=== PATIENT | male | born 1990 | race Native Hawaiian/Other Pacific Islander ===

== ENCOUNTER 2018-10-22 11:50 | Emergency (ER) | payer OTHER ==
[~2018-10-22] VITALS: Ht 172.7 cm; Wt 74.8 kg
[2018-10-22 13:50] VITALS: BP 140/69; TEMP 99
== END 2018-10-22 13:50 | disposition home or self-care (01) ==
LOC: ED 11:50
DX: S90.31XA Contusion of right foot, initial encounter (principal); W16.612A Jumping or diving into natural body of water striking water surface causing other injury, initial encounter; Y92.828 Other wilderness area as the place of occurrence of the external cause
CPT/HCPCS: 99283

== ENCOUNTER 2019-03-18 14:00 | Observation (INO) | payer OTHER ==
[~2019-03-18] VITALS: Ht 172.7 cm; Wt 74.9 kg
[2019-03-18 14:10] VITALS: BP 140/83; TEMP 98.1
[2019-03-18 15:18] LABS: POTASSIUM 3.7 mmol/L (3.6-5.2)
[2019-03-18 15:37] LABS: PLATELET COUNT 429 K/uL (142-355)
[2019-03-18 17:08] VITALS: BP 124/85; TEMP 98.4; Ht 172.7 cm; Wt 74.9 kg
[2019-03-18 20:00] VITALS: BP 125/76; TEMP 98.4
[2019-03-19] VITALS: BP 122/74; TEMP 98.2
[2019-03-19 03:56] VITALS: BP 129/76; TEMP 98.4
[2019-03-19 05:59] LABS: PLATELET COUNT 378 K/uL (142-355)
[2019-03-19 06:16] LABS: POTASSIUM 4.1 mmol/L (3.6-5.2)
[2019-03-19 08:00] VITALS: BP 91/70; TEMP 98.4
[2019-03-19 12:00] VITALS: BP 129/84; TEMP 97.5
[2019-03-19 16:00] VITALS: BP 126/63; TEMP 98.4
[2019-03-19 20:01] VITALS: BP 132/72; TEMP 99.8
[2019-03-20] VITALS: BP 127/76; TEMP 98.4
[2019-03-20 04:00] VITALS: BP 110/82; TEMP 98.4
[2019-03-20 05:21] LABS: PLATELET COUNT 364 K/uL (142-355)
[2019-03-20 05:36] LABS: POTASSIUM 4.1 mmol/L (3.6-5.2)
[2019-03-20 08:00] VITALS: BP 118/73; TEMP 98.4
[2019-03-20 12:00] VITALS: BP 123/54; TEMP 98.1
[2019-03-20 16:00] VITALS: BP 135/70; TEMP 98.4
[2019-03-20] MEDS ORDERED: [UNRECOGNIZED DRUG - CODE] INJ (16:14)
== END 2019-03-20 17:00 | disposition home or self-care (01) ==
LOC: ED 14:00 → MED/SURG 15:50
PROVIDERS: Family Medicine; ADMIT Student in an Organized Health Care Education/Training Program
DX: L03.011 Cellulitis of right finger (principal); M65.141 Other infective (teno)synovitis, right hand; D72.828 Other elevated white blood cell count; Z72.0 Tobacco use
CPT/HCPCS: 36415; 80053; 80202; 83605; 85027; 85651; 86140; 87040; 90471; 90715; 96365; 96366; 96367; 96375; 99220; 99284; A9576; G0378; J0696; J1885; J2543; J3370